=== PATIENT | male | born 1990 | race Caucasian/White ===

== ENCOUNTER 2017-04-06 00:34 | Emergency (ER) | payer MEDICAID ==
[~2017-04-06] VITALS: Ht 203.2 cm; Wt 91.4 kg
[~2017-04-06 00:34] MED LIST: CEPH-331 PO; HYDR-3702 PO
--- OUTSIDE RECORDS SUMMARY | 2017-04-06 00:38 | XMS REPORT | Continuity of Care Document ---
Author Author [facility] Address Unknown Phone Unavailable Allergies Active Description Code Type Severity Reaction Onset Reported/Identified Relationship to Patient Clinical Status Yes No Known Drug Allergies [id number] Drug Allergy Unknown N/ A 01/27/2016 Medications Problems Date Dx Coded Attending Type Code Diagnosis Diagnosed By 01/31/2016 FRANK PALM, ALLEN Lim Ot K04.7 01/31/2016 FRANK PALM, LALEN Lim Ot K08.8 Procedures Results Encounters ACCT No. Visit Date/Time Discharge Status Pt. Type Provider Facility Loc./Unit Complaint [id number] 01/27/2016 17:48:00 2015 18:25:00 DIS Outpatient FRANK PALM, ALLEN Lim [facility] ED
--- OUTSIDE RECORDS SUMMARY | 2017-04-06 00:42 | XMS REPORT | Continuity of Care Document ---
Author Author [facility] Address Unknown Phone Unavailable Allergies Active Description Code Type Severity Reaction Onset Reported/Identified Relationship to Patient Clinical Status Yes No Known Drug Allergies [id number] Drug Allergy Unknown N/ A 01/27/2016 Medications Problems Date Dx Coded Attending Type Code Diagnosis Diagnosed By 01/31/2016 FRANK PALM, ALLEN Lim Ot K04.7 01/31/2016 FRANK PALM, ALLEN Lim Ot K08.8 Procedures Results Encounters ACCT No. Visit Date/Time Discharge Status Pt. Type Provider Facility Loc./Unit Complaint [id number] 01/27/2016 17:48:00 2015 18:25:00 DIS Outpatient FRANK PALM, ALLEN Lim [facility] ED
[2017-04-06 00:49] VITALS: BP 142/75
[2017-04-06] MEDS ORDERED: ED- TRAMADOL 50 MG (ULTRAM) 6 TABLETS/BTL PO ONE (01:15)
[2017-04-06] MEDS ORDERED: KETOROLAC 60 MG/2 ML (TORADOL) VIAL IM ONE (01:15)
[2017-04-06] MEDS ORDERED: NF-TORA10 PO (01:17)
--- NOTE | 2017-04-06 08:11 | Diagnostic Imaging Report ---
INDICATION: Left wrist pain. AP, oblique, and lateral views of the left wrist are obtained. No fracture or acute bony abnormality is seen. Joint spaces are unremarkable. IMPRESSION: Negative left wrist. Dictated by: Dictated on workstation # [id number]
== END 2017-04-06 01:45 | disposition home or self-care (01) ==
LOC: ED 00:38
DX: M77.8 Other enthesopathies, not elsewhere classified (principal); M25.532 Pain in left wrist
CPT/HCPCS: 73110; 96372; 99283; A9270; J1885; L3908; 99282